=== PATIENT | female | born 1980 | race Two or more races ===

== ENCOUNTER 2017-12-05 14:48 | Emergency (ER) | payer OTHER | END 2017-12-05 16:29 | disposition home or self-care (01) | LOC: M ED 14:48 | DX: S39.002A Unspecified injury of muscle, fascia and tendon of lower back, initial encounter (principal); X58.XXXA Exposure to other specified factors, initial encounter; Y92.89 Other specified places as the place of occurrence of the external cause; M54.15 Radiculopathy, thoracolumbar region; M54.42 Lumbago with sciatica, left side; Z88.5 Allergy status to narcotic agent | CPT/HCPCS: 99282 ==

== ENCOUNTER → 2018-08-10 | Outpatient (REF) | payer OTHER ==
[~2018-08-10] MED LIST: MOTR200T44 PO; NORCOTAB PO; ROBA500T PO
[2018-08-12 19:10] LABS: HPV HYBRID CAPTURE II Negative (Negative)
== END ==
LOC: M LAB REF 13:18
PROVIDERS: ATTEND Advanced Practice Midwife
DX: Z12.4 Encounter for screening for malignant neoplasm of cervix (principal); Z11.51 Encounter for screening for human papillomavirus (HPV)
CPT/HCPCS: 87624; G0123

== ENCOUNTER 2018-10-02 07:30 | Emergency (ER) | payer OTHER ==
[~2018-10-02] VITALS: Ht 165.1 cm; Wt 120.5 kg
[~2018-10-02 07:30] MED LIST changes: +HYDR-3715 PO; -NORCOTAB PO
[2018-10-02] MEDS ORDERED: METF500T13 PO (07:35)
[2018-10-02] MEDS ORDERED: MAPA500C PO (07:35)
[2018-10-02] MEDS: IBUPROFEN 800 MG TAB PO ONE (08:05)
--- NOTE | 2018-10-02 08:07 | REP ---
Chest x-ray: Two views. History: Persistent cough . Comparison study: No comparison study . Findings: The lungs are well inflated and free of infiltrate. The pleural angles are sharp. The heart size is normal. Pulmonary vasculature is not increased. No significant bony abnormality is seen. Impression: Negative chest x-ray. Electronically Signed by Chalino Soto MD 10/02/2018 07:59 A
[2018-10-02 08:37] LABS: INFLUENZA A AMPLIFICATION POSITIVE (NEGATIVE); INFLUENZA B AMPLIFICATION NEGATIVE (NEGATIVE)
[2018-10-02 08:58] VITALS: BP 117/69
[2018-10-02] MEDS ORDERED: OSEL75CA PO (08:58)
[2018-10-03] MEDS ORDERED: PRED20TA PO (01:03)
== END 2018-10-02 09:05 | disposition home or self-care (01) ==
LOC: M ED 07:30
DX: J09.X2 Influenza due to identified novel influenza A virus with other respiratory manifestations (principal); M35.9 Systemic involvement of connective tissue, unspecified; E28.2 Polycystic ovarian syndrome; Z79.899 Other long term (current) drug therapy; Z88.5 Allergy status to narcotic agent; Z87.891 Personal history of nicotine dependence; Z77.22 Contact with and (suspected) exposure to environmental tobacco smoke (acute) (chronic)

== ENCOUNTER 2018-10-03 00:13 | Emergency (ER) | payer OTHER ==
[~2018-10-03] VITALS: Ht 165.1 cm; Wt 120.5 kg
[~2018-10-03 00:13] MED LIST changes: +MAPA500C PO; +METF500T13 PO; +OSEL75CA PO
[2018-10-03] MEDS ORDERED: GI COCKTAIL 50ML BTL(HYOSCYAMINE/MAALOX/LIDOCAINE VISCOUS)(1:3:1) PO ONE (01:00)
[2018-10-03] MEDS ORDERED: methylPREDNISolone INJ 125 MG/2 ML VIAL (J2930) IM ONE (01:00)
[2018-10-03] MEDS ORDERED: PRED20TA PO (01:03)
[2018-10-03 01:44] VITALS: BP 107/56
--- NOTE | 2018-10-03 06:27 | ECGEPIP ---
Stationary ECG Study [facility] - ED Test Date: 2018-10-03 Pat Name: RUSSELL DORMAN Department: Room: - Gender: F Machine Stitcher: RULA : 1980 Requested By: JOSSELYN JAMES Order Number: [id number] Reading MD: Neymar Adan Measurements Intervals [place] Rate: 96 P: 31 NE: 145 QRS: 26 QRSD: 88 T: -11 QT: 321 QTc: 407 Interpretive Statements SINUS RHYTHM NONSPECIFIC T-WAVE ABNORMALITY NO PRIORS FOR COMPARISON Electronically Signed On 10-03-2018 6:27:29 EDT by Neymar Adan
--- NOTE | 2018-10-03 08:05 | REP ---
Chest x-ray: Two views. History: Cough . Comparison study: October 02, 2018 . Findings: The lungs are well inflated and free of infiltrate. The pleural angles are sharp. The heart size is normal. Pulmonary vasculature is not increased. No significant bony abnormality is seen. Impression: Negative chest x-ray. Electronically Signed by Chalino Soto MD 10/03/2018 07:56 A
== END 2018-10-03 01:45 | disposition home or self-care (01) ==
LOC: M ED 00:13
DX: J20.8 Acute bronchitis due to other specified organisms (principal); E11.9 Type 2 diabetes mellitus without complications; G89.29 Other chronic pain; M54.9 Dorsalgia, unspecified; Z88.5 Allergy status to narcotic agent
CPT/HCPCS: 71046; 93005; 96372; 99284; J2930

== ENCOUNTER 2019-04-30 22:10 | Emergency (ER) | payer OTHER, BC ==
[~2019-04-30 22:10] MED LIST changes: +PRED20TA PO
[2019-04-30] MEDS ORDERED: PSEUDOEPHEDRINE 30 MG TAB PO STA (22:44)
[2019-04-30] MEDS ORDERED: FLON1SPR NARES (22:46)
[2019-04-30] MEDS ORDERED: ZYRTTAB8 PO (22:46)
== END 2019-04-30 23:03 | disposition home or self-care (01) ==
LOC: M ED 22:10
DX: H65.192 Other acute nonsuppurative otitis media, left ear (principal)

== ENCOUNTER → 2019-06-04 | Outpatient (REF) | payer OTHER, BC ==
[~2019-06-04] MED LIST changes: +FLON1SPR NARES; +ZYRTTAB8 PO
[2019-06-04 17:03] LABS: C REACTIVE PROTEIN QUANTITATIV 1.49 MG/DL (0.00-0.30); COMPLEMENT C3 183 MG/DL (90-180); COMPLEMENT C4 47 MG/DL (10-40); RHEUMATOID FACTOR QUANT < 10.0 IU/ML (<15.0)
[2019-06-08 15:42] LABS: ANA (HEP2) Positive (.); ANTI DS-DNA AB Negative (Negative); CYCLIC CITRULLINATED PEPTIDE 7 units (0-19); RNP ANTIBODY 0.2 AI (0.0-0.9); SMITHS ANTIBODY < 0.2 AI (0.0-0.9); SSA SJOGRENS A <0.2 AI (0.0-0.9); SSB SJOGRENS B <0.2 AI (0.0-0.9)
== END ==
LOC: M SFHCRHEU 12:45
PROVIDERS: ATTEND Internal Medicine Rheumatology
DX: R89.9 Unspecified abnormal finding in specimens from other organs, systems and tissues (principal)

== ENCOUNTER → 2019-11-11 | Outpatient (REF) | payer OTHER, BC ==
[2019-11-11 15:28] LABS: APPEARANCE, URINE TURBID (CLEAR); BACTERIA, URINE AUTO NEGATIVE (NEGATIVE); BILIRUBIN, URINE AUTO NEGATIVE (NEGATIVE); BLOOD, URINE BLOOD NEGATIVE (NEGATIVE); COLOR, URINE YELLOW (YELLOW); GLUCOSE, URINE (UA) AUTO NEGATIVE (NEGATIVE); KETONE, URINE AUTO NEGATIVE (NEGATIVE); LEUKOCYTE ESTERASE, URINE AUTO NEGATIVE (NEGATIVE); NITRITE, URINE AUTO NEGATIVE (NEGATIVE); PROTEIN, URINE AUTO NEGATIVE (NEGATIVE); RBC, URINE AUTO 0 /HPF (0-3); SPECIFIC GRAVITY URINE AUTO 1.023 (1.002-1.035); SQUAMOUS EPITHELIAL CELL UR AU 8 /HPF (0-6); UROBILINOGEN, URINE AUTO 0.2 mg/dL (0.0-2.0); WBC, URINE AUTO 0 /HPF (0-3)
[2019-11-11 18:16] LABS: BASO # 0.1 10^3/uL (0.0-0.2); BASO % 0.6 % (0.0-1.0); EOS # 0.2 10^3/uL (0.0-0.5); EOS % 1.4 % (0.0-3.0); LYMPH # 4.5 10^3/uL (1.5-5.0); LYMPH % 41.5 % (24.0-44.0); MEAN CORPUSCULAR HEMOGLOBIN 27.5 pg (27.0-33.0); MEAN CORPUSCULAR HGB CONC 31.8 g/dl (32.0-36.5); MEAN CORPUSCULAR VOLUME 86.3 fl (80.0-96.0); MONO # 0.8 10^3/uL (0.0-0.8); NEUTROPHILS # 5.3 10^3/uL (1.5-8.5); NEUTROPHILS % 48.5 % (36.0-66.0); PLATELET COUNT, AUTOMATED 406 10^3/uL (150-450); WHITE BLOOD COUNT 10.8 10^3/uL (4.0-10.0)
[2019-11-11 19:14] LABS: ERYTHROCYTE SEDIMENTATION RATE 9 mm/hr (0-20)
[2019-11-16 23:07] LABS: ANTI DS-DNA AB Negative (Negative); BETA-2 GLYCOPROTEIN I ABY IGA <9 (0-25); BETA-2 GLYCOPROTEIN I ABY IGG <9 (0-20); BETA-2 GLYCOPROTEIN I ABY IGM <9 (0-32); CARDIOLIPIN IGA ANTIBODY <9 APL U/mL (0-11); CARDIOLIPIN IGG ANTIBODY <9 GPL U/mL (0-14); CARDIOLIPIN IGM ANTIBODY <9 MPL U/mL (0-12); CYCLIC CITRULLINATED PEPTIDE 8 units (0-19); RNP ANTIBODY 0.2 AI (0.0-0.9); SMITHS ANTIBODY < 0.2 AI (0.0-0.9); SSA SJOGRENS A <0.2 AI (0.0-0.9); SSB SJOGRENS B <0.2 AI (0.0-0.9)
== END ==
LOC: M SFHCRHEU 12:20
PROVIDERS: ATTEND Internal Medicine
DX: R76.8 Other specified abnormal immunological findings in serum (principal)

== ENCOUNTER → 2019-11-23 | Outpatient (CLI) | payer OTHER, BC ==
[2019-11-23 17:37] LABS: ALBUMIN 3.8 GM/DL (3.2-5.2); ALT/SGPT 43 U/L (12-78); BILIRUBIN,TOTAL 0.4 MG/DL (0.2-1.0); BLOOD UREA NITROGEN 19 MG/DL (7-18); C REACTIVE PROTEIN QUANTITATIV 1.86 MG/DL (0.00-0.30); CALCIUM LEVEL 9.9 MG/DL (8.5-10.1); CARBON DIOXIDE LEVEL 29 MEQ/L (21-32); CHLORIDE LEVEL 102 MEQ/L (98-107); COMPLEMENT C3 214 MG/DL (90-180); COMPLEMENT C4 42 MG/DL (10-40); CREATININE FOR GFR 0.66 MG/DL (0.55-1.30); GLOMERULAR FILTRATION RATE > 60.0 (>58); GLUCOSE, FASTING 78 MG/DL (70-100); POTASSIUM SERUM 4.8 MEQ/L (3.5-5.1); RHEUMATOID FACTOR QUANT < 10.0 IU/ML (<15.0); SODIUM LEVEL 139 MEQ/L (136-145); TOTAL PROTEIN 7.8 GM/DL (6.4-8.2)
[2019-11-26 12:14] LABS: ANTI DS-DNA AB Negative (Negative); RNP ANTIBODY 0.2 AI (0.0-0.9); SMITHS ANTIBODY < 0.2 AI (0.0-0.9)
== END ==
LOC: M WUC 13:25
PROVIDERS: ATTEND Internal Medicine
DX: M06.4 Inflammatory polyarthropathy (principal); R76.8 Other specified abnormal immunological findings in serum

== ENCOUNTER → 2020-08-21 | Outpatient (CLI) | payer OTHER, BC ==
--- NOTE | 2020-08-21 11:12 | REP ---
INDICATION: PAIN COMPARISON: None. TECHNIQUE: Internal rotation, external rotation, and Y view. FINDINGS: Very minimal cortical irregularity at the acromioclavicular joint. Subacromial space is normal. Glenohumeral joint appears intact and normal. No periarticular calcifications or loose bodies are identified. No evidence for acute or healed injury. IMPRESSION: Very minimal degenerative changes primarily involving the acromioclavicular joint. <Electronically signed by Guanako Quiroz > 08/21/20 [id number]
== END ==
LOC: M WUC 09:46
PROVIDERS: ATTEND Physician Assistant
DX: M25.511 Pain in right shoulder (principal)

== ENCOUNTER 2020-11-06 15:51 | Emergency (ER) | payer BC, OTHER ==
[~2020-11-06] VITALS: Ht 165.1 cm; Wt 130.6 kg
[2020-11-06] MEDS ORDERED: [UNRECOGNIZED DRUG - CODE] (16:12)
[2020-11-06] MEDS ORDERED: PRED5TA (16:12)
[2020-11-06] MEDS ORDERED: HYDR200T3 (16:12)
[2020-11-06] MEDS ORDERED: LEVO50TA5 (16:12)
[2020-11-06] MEDS ORDERED: [UNRECOGNIZED DRUG - CODE] (16:12)
[2020-11-06] MEDS ORDERED: ROSU10TA6 (16:12)
--- NOTE | 2020-11-06 17:15 | REP ---
INDICATION: sp ivf. COMPARISON: None TECHNIQUE: Trans abdominal and transvaginal FINDINGS: The uterus measures 9.2 x 3.9 x 3.3 cm. The right ovary was not visualized Left ovary measures 7 x 5.4 x 5.9 cm with an RI 0.5. Multiple follicles of various sizes are noted. There is a moderate amount of free fluid etiology uncertain. IMPRESSION: Limited exam as described above. Moderate free fluid <Electronically signed by Jayjay Lehman > 11/06/20 [id number]
[2020-11-06 18:56] LABS: BASO # 0.1 10^3/uL (0.0-0.2); BASO % 0.3 % (0.0-1.0); EOS # 0.1 10^3/uL (0.0-0.5); EOS % 0.4 % (0.0-3.0); HEMATOCRIT 41.1 % (36.0-47.0); HEMOGLOBIN 12.9 g/dl (12.0-15.5); LYMPH # 4.6 10^3/uL (1.5-5.0); LYMPH % 22.1 % (24.0-44.0); MEAN CORPUSCULAR HEMOGLOBIN 26.5 pg (27.0-33.0); MEAN CORPUSCULAR HGB CONC 31.4 g/dl (32.0-36.5); MEAN CORPUSCULAR VOLUME 84.4 fl (80.0-96.0); MONO # 1.7 10^3/uL (0.0-0.8); MONO % 8.4 % (2.0-8.0); NEUTROPHILS % 67.8 % (36.0-66.0); PLATELET COUNT, AUTOMATED 360 10^3/uL (150-450); RED BLOOD COUNT 4.87 10^6/uL (4.00-5.40)
[2020-11-06 19:26] LABS: ALBUMIN 3.6 GM/DL (3.2-5.2); ALT/SGPT 20 U/L (12-78); BILIRUBIN,DIRECT 0.1 MG/DL (0.0-0.2); BILIRUBIN,TOTAL 0.2 MG/DL (0.2-1.0); BLOOD UREA NITROGEN 13 MG/DL (7-18); CALCIUM LEVEL 9.8 MG/DL (8.5-10.1); CARBON DIOXIDE LEVEL 30 MEQ/L (21-32); CHLORIDE LEVEL 102 MEQ/L (98-107); GLOMERULAR FILTRATION RATE > 60.0 (>58); GLUCOSE, FASTING 81 MG/DL (70-100); HCG, SERUM QUANTITATIVE 19 MIU/ML; LIPASE 196 U/L (73-393); POTASSIUM SERUM 4.4 MEQ/L (3.5-5.1); SODIUM LEVEL 136 MEQ/L (136-145); TOTAL PROTEIN 7.7 GM/DL (6.4-8.2)
[2020-11-06 19:29] LABS: WHITE BLOOD COUNT 20.7 10^3/uL (4.0-10.0)
[2020-11-06] MEDS ORDERED: ACETAMINOPHEN 500 MG TAB PO ONE (22:30)
--- NOTE | 2020-11-06 22:52 | REPVR ---
PROCEDURE INFORMATION: Exam: XR Complete Acute Abdomen Series Exam date and time: 11/06/2020 9:23 PM Age: 40 years old Clinical indication: Abdominal pain TECHNIQUE: Imaging protocol: XR complete acute abdomen series, including 2 or more views of the abdomen and a single view chest. COMPARISON: CA Chest, 2 view PA, Lat 10/03/2018 12:49 AM FINDINGS: Tubes, catheters and devices: There are surgical clips at the right upper quadrant. Lungs: The lungs appear clear. Pleural spaces: Normal. No pleural effusions. No pneumothorax. Heart/Mediastinum: The heart is normal in size. Gastrointestinal tract: There is a small amount of gas throughout the bowel with no evidence of obstruction. There is a large amount of stool in the right colon and transverse colon consistent with constipation. Intraperitoneal space: There is no evidence of pneumoperitoneum. Bones/joints: There is osteophyte formation of the thoracic and lumbar spine. Soft tissues: Normal. IMPRESSION: Large amount of stool in the right colon and transverse colon consistent with constipation. Electronically signed by: Trace Gilmore On 11/06/2020 22:52:23 PM
[2020-11-06 23:08] LABS: CHLAMYDIA DNA AMPLIFICATION NEGATIVE (NEGATIVE); GC DNA AMPLIFICATION NEGATIVE (NEGATIVE)
[2020-11-06] MEDS ORDERED: COLA100C5 PO (23:15)
[2020-11-06] MEDS ORDERED: GLYCERIN ADULT SUPP PR ONE (23:15)
[2020-11-06] MEDS ORDERED: MAGNESIUM CITRATE 300 ML BTL PO ONE (23:15)
[2020-11-06] MEDS ORDERED: DOCUSATE SODIUM 100MG CAPSULE PO ONE (23:15)
[2020-11-06] MEDS ORDERED: MIRA3350 PO (23:16)
[2020-11-07 00:10] VITALS: BP 128/77
== END 2020-11-07 00:11 | disposition home or self-care (01) ==
LOC: M ED 15:51
DX: R10.2 Pelvic and perineal pain (principal); G89.18 Other acute postprocedural pain; D72.829 Elevated white blood cell count, unspecified; K59.00 Constipation, unspecified; E28.2 Polycystic ovarian syndrome; E03.9 Hypothyroidism, unspecified; Z79.899 Other long term (current) drug therapy; Z79.890 Hormone replacement therapy; Z88.5 Allergy status to narcotic agent

== ENCOUNTER 2021-02-08 09:59 | Emergency (ER) | payer OTHER ==
[~2021-02-08] VITALS: Ht 165.1 cm; Wt 128.2 kg
[~2021-02-08 09:59] MED LIST changes: +COLA100C5 PO; +HYDR200T3; +LEVO50TA5; +MIRA3350 PO; +PRED5TA; +ROSU10TA6; +[UNRECOGNIZED DRUG - CODE]; +[UNRECOGNIZED DRUG - CODE]
--- NOTE | 2021-02-08 13:04 | REPVR ---
PROCEDURE INFORMATION: Exam: CT Lumbar Spine Without Contrast Exam date and time: 02/08/2021 12:33 PM Age: 40 years old Clinical indication: Other: Chronic back pain; Additional info: Chronic back pain, bent forward sev pain at prior surgic sit TECHNIQUE: Imaging protocol: Computed tomography images of the lumbar spine without contrast. Radiation optimization: All CT scans at this facility use at least one of these dose optimization techniques: automated exposure control; mA and/or kV adjustment per patient size (includes targeted exams where dose is matched to clinical indication); or iterative reconstruction. COMPARISON: CR Abdomen,Flat Upright,PA CHEST 11/06/2020 9:08 PM FINDINGS: Vertebrae: Mildly advanced degenerative changes for age at L4-L5 and L5-S1 without acute fracture line, high-grade compression deformity, or worrisome malalignment. Minimal scoliosis. Disc spaces: Bulging discs most pronounced at L4-L5. Mild central stenosis L3-L4 through L5-S1. Epidural space: No epidural fluid. Sacrum/coccyx: Symmetric SI joints. Liver: Low-density liver suggests fatty infiltration. Kidneys and ureters: Mild renal volume loss bilaterally. Vasculature: Atherosclerotic changes of the aorta. Soft tissues: No paraspinal hematoma. IMPRESSION: 1. No acute fracture. 2. Degenerative changes. 3. Central stenosis as above. 4. Findings suggestive fatty liver. Correlation with LFT values is recommended. 5. Renal volume loss bilaterally. Six. Atherosclerotic changes Electronically signed by: Slava Alvarado On 02/08/2021 13:03:41 PM
--- NOTE | 2021-02-08 13:06 | REPVR ---
PROCEDURE INFORMATION: Exam: CT Thoracic Spine Without Contrast Exam date and time: 02/08/2021 12:33 PM Age: 40 years old Clinical indication: Other: Chronic back pain; Additional info: Chronic back pain, bent forward sev pain at prior surgic sit TECHNIQUE: Imaging protocol: Computed tomography images of the thoracic spine without contrast. Radiation optimization: All CT scans at this facility use at least one of these dose optimization techniques: automated exposure control; mA and/or kV adjustment per patient size (includes targeted exams where dose is matched to clinical indication); or iterative reconstruction. COMPARISON: CR Abdomen,Flat Upright,PA CHEST 11/06/2020 9:08 PM FINDINGS: Vertebrae: Age-appropriate degenerative changes are present without acute fracture, high-grade compression deformity, or worrisome malalignment Spinal epidural space: No epidural fluid. Other bones/joints: The adjacent ribs are intact. Lungs: The included lungs are clear. Liver: Low-density liver suggests fatty infiltration. No definite focal disc herniation and no high-grade central or foraminal encroachment. Soft tissues: No paraspinal hematoma. IMPRESSION: 1. Degenerative changes without acute fracture. 2. Findings suggestive fatty liver and correlation with LFT values recommended. 3. Not discussed above are paraspinal lipomas on the left of no clinical significance. Electronically signed by: Slava Alvarado On 02/08/2021 13:05:50 PM
[2021-02-08 13:25] VITALS: BP 146/83
== END 2021-02-08 13:43 | disposition home or self-care (01) ==
LOC: M ED 09:59
DX: M51.34 Other intervertebral disc degeneration, thoracic region (principal); M51.36 Other intervertebral disc degeneration, lumbar region; M51.37 Other intervertebral disc degeneration, lumbosacral region; M51.26 Other intervertebral disc displacement, lumbar region; M48.061 Spinal stenosis, lumbar region without neurogenic claudication; M48.07 Spinal stenosis, lumbosacral region; G89.29 Other chronic pain; M06.9 Rheumatoid arthritis, unspecified; E28.2 Polycystic ovarian syndrome; Z79.899 Other long term (current) drug therapy; Z79.890 Hormone replacement therapy; Z88.5 Allergy status to narcotic agent; Z87.39 Personal history of other diseases of the musculoskeletal system and connective tissue

== ENCOUNTER → 2021-03-26 | Outpatient (CLI) | payer OTHER ==
--- NOTE | 2021-03-27 18:41 | REPVR ---
PROCEDURE INFORMATION: Exam: MR Lumbar Spine Without Contrast Exam date and time: 03/26/2021 12:36 PM Age: 41 years old Clinical indication: Low back pain; Additional info: Disc degeneration TECHNIQUE: Imaging protocol: Multiplanar magnetic resonance images of the lumbar spine without intravenous contrast. COMPARISON: CT Spine, lumbar w/o contrast 02/08/2021 12:34 PM FINDINGS: Vertebrae: Normal alignment. Mild endplate degenerative changes. Multilevel facet DJD. Normal marrow signal. Spinal cord: Conus medullaris terminates in normal position at L1. No conus compression. L1-L2: No disc herniation or spinal stenosis. No significant foraminal stenosis. L2-L3: No disc herniation or spinal stenosis. No significant foraminal stenosis. L3-L4: Disc degeneration with 9 x 10 x 4 mm left paracentral disc herniation extending inferiorly from the disc. Small midline annulus tear. Mild lateral recess narrowing with the disc herniation contacting the left L4 nerve root. No significant foraminal stenosis or spinal stenosis. L4-L5: Intervertebral disc degeneration with loss of disc height and disc desiccation. Mild endplate degenerative changes. 3 mm midline/left paracentral disc protrusion extending inferiorly from the disc space. Mild left lateral recess stenosis with mass effect on the L4 nerve root. No spinal stenosis or foraminal stenosis. L5-S1: Severe disc degeneration with loss of disc height and broad-based posterior disc bulge. No significant foraminal stenosis. Soft tissues: Unremarkable. IMPRESSION: 1. 9 x 10 x 4 mm L3-L4 left paracentral disc herniation. 2. 3 mm midline/left paracentral disc protrusion L4-L5. 3. Advanced disc degeneration at L5-S1. Multilevel facet DJD. Electronically signed by: Rd Orona On 03/27/2021 18:41:25 PM
== END ==
LOC: M RAD 11:29
PROVIDERS: ATTEND Physician Assistant
DX: M51.36 Other intervertebral disc degeneration, lumbar region (principal)

== ENCOUNTER → 2021-11-28 | Outpatient (REF) | payer OTHER ==
[2021-11-28 16:30] LABS: BASO # 0.1 10^3/uL (0.0-0.2); BASO % 0.6 % (0.0-1.0); EOS # 0.1 10^3/uL (0.0-0.5); EOS % 0.9 % (0.0-3.0); HEMATOCRIT 42.9 % (36.0-47.0); HEMOGLOBIN 13.9 g/dl (12.0-15.5); LYMPH # 3.8 10^3/uL (1.5-5.0); LYMPH % 39.8 % (24.0-44.0); MEAN CORPUSCULAR HEMOGLOBIN 29.3 pg (27.0-33.0); MEAN CORPUSCULAR HGB CONC 32.4 g/dl (32.0-36.5); MEAN CORPUSCULAR VOLUME 90.5 fl (80.0-96.0); MONO # 0.7 10^3/uL (0.0-0.8); MONO % 7.7 % (2.0-8.0); NEUTROPHILS # 4.8 10^3/uL (1.5-8.5); NEUTROPHILS % 50.4 % (36.0-66.0); PLATELET COUNT, AUTOMATED 309 10^3/uL (150-450); RED BLOOD COUNT 4.74 10^6/uL (4.00-5.40); WHITE BLOOD COUNT 9.5 10^3/uL (4.0-10.0)
[2021-11-28 16:45] LABS: ALBUMIN 3.8 GM/DL (3.2-5.2); ALT/SGPT 32 U/L (12-78); BILIRUBIN,TOTAL 0.3 MG/DL (0.2-1.0); BLOOD UREA NITROGEN 13 MG/DL (7-18); C REACTIVE PROTEIN QUANTITATIV 1.02 MG/DL (0.00-0.30); CALCIUM LEVEL 9.7 MG/DL (8.5-10.1); CARBON DIOXIDE LEVEL 28 MEQ/L (21-32); CHLORIDE LEVEL 106 MEQ/L (98-107); CREATININE FOR GFR 0.68 MG/DL (0.55-1.30); GLOMERULAR FILTRATION RATE > 60.0 (>58); GLUCOSE, FASTING 95 MG/DL (70-100); POTASSIUM SERUM 4.7 MEQ/L (3.5-5.1); SODIUM LEVEL 141 MEQ/L (136-145); TOTAL PROTEIN 7.6 GM/DL (6.4-8.2)
[2021-11-28 18:26] LABS: ERYTHROCYTE SEDIMENTATION RATE 30 mm/hr (0-20)
== END ==
LOC: M SFHCADAM 11:35
PROVIDERS: ATTEND Internal Medicine Rheumatology
DX: M06.4 Inflammatory polyarthropathy (principal); R21 Rash and other nonspecific skin eruption; R76.8 Other specified abnormal immunological findings in serum; Z79.899 Other long term (current) drug therapy

== ENCOUNTER → 2021-11-28 | Outpatient (CLI) | payer OTHER | LOC: M ADAMS 11:46 | PROVIDERS: ATTEND Internal Medicine Rheumatology | DX: M06.4 Inflammatory polyarthropathy (principal) ==

== ENCOUNTER → 2022-03-12 | Outpatient (CLI) | payer OTHER | LOC: M ADAMS 10:43 | PROVIDERS: ATTEND Physician Assistant | DX: M77.11 Lateral epicondylitis, right elbow (principal) ==

== ENCOUNTER → 2023-07-01 | Outpatient (CLI) | payer OTHER ==
[~2023-07-01] MED LIST changes: -HYDR200T3; +HYDR200T46
[2023-07-01 19:34] LABS: RHEUMATOID FACTOR QUANT < 3.5 IU/ML (<14)
[2023-07-01 19:35] LABS: ALBUMIN 3.7 G/DL (3.2-5.2); ALKALINE PHOSPHATASE 46 U/L (46-116); ALT/SGPT 26 U/L (7.0-40); AST/SGOT 19 U/L (<34); BILIRUBIN,TOTAL 0.4 MG/DL (0.3-1.2); BLOOD UREA NITROGEN 12 MG/DL (9-23); CALCIUM LEVEL 9.2 MG/DL (8.5-10.1); CARBON DIOXIDE LEVEL 28 MMOL/L (20-31); CHLORIDE LEVEL 102 MMOL/L (98-107); CHOLESTEROL LEVEL 197 MG/DL (<200); CHOLESTEROL RISK RATIO 3.48 (<5); GLOMERULAR FILTRATION RATE > 60.0 (>58); GLUCOSE, FASTING 87 MG/DL (60-100); HCG, SERUM QUANTITATIVE < 2.6 MIU/ML (<4.2); HDL CHOLESTEROL 56.6 MG/DL (>40); LDL CHOLESTEROL 91.2 MG/DL (<100); MAGNESIUM LEVEL 2.1 MG/DL (1.8-2.4); NON-HDL-C 140.4 MG/DL; POTASSIUM SERUM 4.2 MMOL/L (3.5-5.1); SODIUM LEVEL 135 MMOL/L (136-145); TRIGLYCERIDES LEVEL 246 MG/DL (<150)
[2023-07-01 19:36] LABS: FREE T4 1.08 NG/DL (0.89-1.76)
[2023-07-01 19:37] LABS: FOLATE > 24.00 NG/ML (>5.4); VITAMIN B12 LEVEL 1454 PG/ML (211-911)
== END ==
LOC: M WUC 15:28
PROVIDERS: ATTEND Registered Nurse
DX: R53.83 Other fatigue (principal); M06.9 Rheumatoid arthritis, unspecified; Z13.220 Encounter for screening for lipoid disorders; Z00.01 Encounter for general adult medical examination with abnormal findings

== ENCOUNTER → 2023-07-07 | Outpatient (CLI) | payer OTHER | LOC: M RAD 06:57 | PROVIDERS: ATTEND Podiatrist Foot & Ankle Surgery | DX: M79.671 Pain in right foot (principal); S90.31XA Contusion of right foot, initial encounter; X58.XXXA Exposure to other specified factors, initial encounter; Y92.9 Unspecified place or not applicable; Y93.9 Activity, unspecified; Y99.9 Unspecified external cause status ==

== ENCOUNTER → 2023-08-29 | Outpatient (CLI) | payer OTHER | LOC: M WUC 08:40 | PROVIDERS: ATTEND Registered Nurse | DX: R05.9 Cough, unspecified (principal) ==

== ENCOUNTER → 2024-03-18 | Outpatient (CLI) | payer OTHER ==
[~2024-03-18] MED LIST changes: -ROSU10TA6; +ROSU10TA61
== END ==
LOC: M WHC 14:33
PROVIDERS: ATTEND Physician Assistant Surgical
DX: S82.64XD Nondisplaced fracture of lateral malleolus of right fibula, subsequent encounter for closed fracture with routine healing (principal)

== ENCOUNTER → 2024-07-01 | Outpatient (CLI) | payer OTHER | LOC: M SLEEP HO 10:29 | PROVIDERS: ATTEND Nurse Practitioner Adult Health | DX: R06.83 Snoring (principal) ==

== ENCOUNTER → 2024-07-14 | Outpatient (REF) | payer OTHER | LOC: M SFHCDERM 16:49 | PROVIDERS: ATTEND Physician Assistant | DX: D22.71 Melanocytic nevi of right lower limb, including hip (principal) ==

== ENCOUNTER → 2024-08-27 | Outpatient (CLI) | payer OTHER | LOC: M SOG 08:05 | PROVIDERS: ATTEND Physician Assistant | DX: M79.641 Pain in right hand (principal); M79.642 Pain in left hand ==

== ENCOUNTER → 2024-09-02 | Outpatient (REF) | payer OTHER | LOC: M SFHCWAGY 15:30 | PROVIDERS: ATTEND Obstetrics & Gynecology | DX: R87.610 Atypical squamous cells of undetermined significance on cytologic smear of cervix (ASC-US) (principal) ==

== ENCOUNTER → 2024-09-08 | Outpatient (CLI) | payer OTHER | LOC: M SOG 07:48 | PROVIDERS: ATTEND Physician Assistant | DX: M79.641 Pain in right hand (principal); M79.642 Pain in left hand ==

== ENCOUNTER 2024-10-12 06:01 | Day surgery (SDC) | payer OTHER ==
[~2024-10-12] VITALS: Ht 165.1 cm; Wt 121.4 kg
[~2024-10-12 06:01] MED LIST changes: +APPLTAB2 PO; +ELDE350C PO; +EMER1PAK PO; +GNP250TA9 PO; +IRON27TA2 PO; +META28.32 PO; +TIRZ5PEN3 SQ; +VITA100093 PO; +medical marijuana
[2024-10-12] MEDS ORDERED: LR 1,000 ML IV SCH (06:10)
[2024-10-12] MEDS ORDERED: KETAMINE HCL 200MG/20ML VIAL As Ordered ONE (07:05)
[2024-10-12] MEDS ORDERED: MIDAZOLAM INJ 2MG/2ML VIAL As Ordered ONE (07:05)
[2024-10-12] MEDS ORDERED: fentaNYL 100 MCG/2 ML INJECTION As Ordered ONE (07:05)
[2024-10-12] MEDS ORDERED: LIDOCAINE 2% 100MG/5ML SDV (FOR ANES.) As Ordered ONE (07:06)
[2024-10-12] MEDS ORDERED: ACETAMINOPHEN 1000MG/100ML IV BAG As Ordered ONE (07:06)
[2024-10-12] MEDS ORDERED: propofoL 200 MG/20 ML VIAL As Ordered ONE (07:06)
[2024-10-12] MEDS ORDERED: KETOROLAC 30 MG/ML 1ML VIAL As Ordered ONE (07:06)
[2024-10-12] MEDS ORDERED: ONDANSETRON 4MG 2ML VIAL As Ordered ONE (07:06)
[2024-10-12] MEDS ORDERED: METOCLOPRAMIDE INJ 10MG/2ML VIAL As Ordered ONE (07:06)
[2024-10-12] MEDS ORDERED: GLYCOPYRROLATE INJ 0.2 MG/ML 2 ML VIAL As Ordered ONE (07:08)
[2024-10-12] MEDS ORDERED: dexmedeTOMIDine (4MCG/ML)200MCG/50ML BTL (PRECEDEX) As Ordered ONE (07:39)
[2024-10-12] MEDS: ceFAZolin SOD 3 GM in DEXTROSE 5% (D5W) MINI-BAG PLU 1... IV ONE (07:45)
[2024-10-12] MEDS: LIDOCAINE 1% SDV 30ML VIAL As Ordered ONE (07:57)
[2024-10-12] MEDS ORDERED: SUZE50TA PO (08:24)
[2024-10-12] MEDS: NITROGLYCERIN 0.4MG SUBL TABLET SL STA ×2 (08:54→09:09)
[2024-10-12 09:09] VITALS: BP 126/62
[2024-10-12] MEDS: BICITRA 30ML SOLN UDC PO ONE (09:15)
[2024-10-12 09:53] LABS: CK-MB VALUE MASS < 1.0 NG/ML (<3.6)
[2024-10-12 10:05] LABS: CPK CREATINE PHOSPHOKINASE 96 U/L (34-145); MB/CK RELATIVE INDEX 1.04 (< OR =4)
[2024-10-12 11:05] VITALS: BP 123/75; TEMP 97.6; O2SAT 96
== END 2024-10-12 11:24 | disposition home or self-care (01) ==
LOC: M SDC 06:01
PROVIDERS: ATTEND Neuromusculoskeletal Medicine, Sports Medicine
DX: G56.02 Carpal tunnel syndrome, left upper limb (principal); Z68.41 Body mass index [BMI] 40.0-44.9, adult; Z88.5 Allergy status to narcotic agent; Z79.899 Other long term (current) drug therapy; F17.290 Nicotine dependence, other tobacco product, uncomplicated
CPT/HCPCS: 36415; 64721; 82550; 82553; 84484; 93005; J0131; J0690; J1100; J1596; J1885; J2250; J2405; J2765; J3010

== ENCOUNTER 2024-10-26 06:04 | Day surgery (SDC) | payer OTHER ==
[~2024-10-26] VITALS: Ht 165.1 cm; Wt 120.7 kg
[~2024-10-26 06:04] MED LIST changes: +SUZE50TA PO
[2024-10-26] MEDS ORDERED: ONDANSETRON 4MG 2ML VIAL As Ordered ONE (07:06)
[2024-10-26] MEDS ORDERED: propofoL 200 MG/20 ML VIAL As Ordered ONE (07:06)
[2024-10-26] MEDS ORDERED: LIDOCAINE 2% 100MG/5ML SDV (FOR ANES.) As Ordered ONE (07:06)
[2024-10-26] MEDS ORDERED: MIDAZOLAM INJ 2MG/2ML VIAL As Ordered ONE (07:07)
[2024-10-26] MEDS ORDERED: fentaNYL 100 MCG/2 ML INJECTION As Ordered ONE (07:07)
[2024-10-26] MEDS ORDERED: KETOROLAC 30 MG/ML 1ML VIAL As Ordered ONE (07:09)
[2024-10-26] MEDS: ceFAZolin SODIUM 3 GM VIAL As Ordered ONE (07:55)
[2024-10-26] MEDS ORDERED: dexmedeTOMIDine (4MCG/ML)200MCG/50ML BTL (PRECEDEX) As Ordered ONE (07:55)
[2024-10-26] MEDS ORDERED: ePHEDrine SULFATE 25 MG/5 ML(5MG/ML) SYRINGE As Ordered ONE (08:08)
[2024-10-26] MEDS: LIDOCAINE 1% MDV 20ML VIAL As Ordered ONE (08:10)
[2024-10-26] MEDS ORDERED: PANTOPRAZOLE SODIUM 40 MG in D5W 50 ML IV SCH (08:20)
[2024-10-26] MEDS ORDERED: fentaNYL 100 MCG/2 ML INJECTION IV PRN (08:20)
[2024-10-26] MEDS: PANTOPRAZOLE 40MG VIAL IV ONE (08:35)
[2024-10-26] MEDS: ONDANSETRON 4MG 2ML VIAL IV PRN (08:43)
[2024-10-26 09:44] VITALS: BP 123/67; TEMP 97.9; O2SAT 95
== END 2024-10-26 09:45 | disposition home or self-care (01) ==
LOC: M SDC 06:04
PROVIDERS: ATTEND Neuromusculoskeletal Medicine, Sports Medicine
DX: G56.01 Carpal tunnel syndrome, right upper limb (principal); Z68.41 Body mass index [BMI] 40.0-44.9, adult; G47.30 Sleep apnea, unspecified; Z79.899 Other long term (current) drug therapy
CPT/HCPCS: 64721; 81025; J0690; J1100; J2250; J2405; J2470; J3010